=== PATIENT | female | born 1945 | race African-American/Black ===

== ENCOUNTER 2017-06-25 08:23 | Emergency (ER) | payer OTHER ==
[2017-06-25 08:32] VITALS: BP 142/79; BMI 28.3
[2017-06-25] MEDS ORDERED: TORADOL 30 MG VIAL IM ONE (09:01)
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
[2017-06-25] MEDS ORDERED: TORADOL 30 MG VIAL ONE (09:09)
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
== END 2017-06-25 10:57 | disposition home or self-care (01) ==
LOC: ER 08:43
DX: M47.16 Other spondylosis with myelopathy, lumbar region (principal)
CPT/HCPCS: 72131; 96372; 99283; J1885

== ENCOUNTER 2017-07-03 16:09 | Emergency (ER) | payer OTHER ==
[2017-07-03 16:19] VITALS: BP 143/80; BMI 21.5
[2017-07-03] MEDS ORDERED: TORADOL 60 MG VIAL IM ONE (17:58)
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
[2017-07-03] MEDS ORDERED: TORADOL 60 MG VIAL ONE (18:08)
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
== END 2017-07-03 19:57 | disposition home or self-care (01) ==
LOC: ER 16:25
DX: M54.89 Other dorsalgia (principal); M54.30 Sciatica, unspecified side; R10.2 Pelvic and perineal pain
CPT/HCPCS: 72192; 96372; 99282; J1885

== ENCOUNTER → 2018-01-29 | Outpatient (CLI) | payer OTHER ==
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
[2018-01-29 15:34] LABS: ALANINE AMINOTRANSFERASE 16 Units/L (12-78); ALBUMIN 3.6 g/dL (3.4-5.0); ALKALINE PHOSPHATASE 55 Units/L (46-116); ASPARTATE AMINO TRANSFERASE 18 Units/L (15-37); BLOOD UREA NITROGEN 34 mg/dL (7-18); CALCIUM 8.8 mg/dL (8.5-10.1); CARBON DIOXIDE 24.5 mmol/L (21-32); CHLORIDE 103 mmol/L (98-107); COR NA(FOR HYPERGLY) 141 mmol/L (136-145); CREATININE 1.66 mg/dL (0.55-1.02); SODIUM 140 mmol/L (136-145); TOTAL PROTEIN 8.3 g/dL (6.4-8.2); eGFR BLACK RACES 39 (>60); eGFR NON BLACK RACES 32 (>60)
[2018-01-29 15:39] LABS: BASOPHILS % (AUTO) 1.2 % (0.2-1.0); EOSINOPHILS % (AUTO) 0.5 % (0.9-2.9); HEMATOCRIT 33.3 % (36.0-47.0); LYMPHOCYTES # (AUTO) 2.2 X10^3/uL (1.3-2.9); LYMPHOCYTES % (AUTO) 66.4 % (21.0-51.0); MEAN CORPUSCULAR HEMOGLOBIN 27.5 pg (27.0-34.0); MEAN CORPUSCULAR HGB CONC 33.1 g/dL (33.0-35.0); MEAN CORPUSCULAR VOLUME 83.2 fL (80.0-100.0); MONOCYTES # (AUTO) 0.4 x10^3/uL (0.3-0.8); MONOCYTES % (AUTO) 11.7 % (0.0-13.0); NEUTROPHILS # (AUTO) 0.7 x10^3/uL (2.2-4.8); NEUTROPHILS % (AUTO) 20.2 % (42.0-75.0); PLATELET COUNT 241 X10^3/uL (150.0-450.0); RED BLOOD COUNT 4.01 X10^6/uL (3.5-5.4); RED CELL DISTRIBUTION WIDTH 15.2 % (11.6-16.5); WHITE BLOOD COUNT 3.3 X10^3/uL (3.6-10.0)
[2018-01-29 16:03] LABS: B-TYPE NATRIURETIC PEPTIDE 8.9 pg/mL (0-79)
[2018-01-29 16:44] LABS: BAND NEUTROPHILS % 2 % (0-10); HYPOCHROMASIA SLIGHT; PLATELET MORPHOLOGY COMMENT NORMAL (NORMAL); POIKILOCYTOSIS SLIGHT
[2018-01-29 16:45] LABS: ANISOCYTOSIS SLIGHT
== END | disposition home or self-care (01) | DRG 864 ==
LOC: LAB 14:31
PROVIDERS: ATTEND Obstetrics & Gynecology Obstetrics
DX: R50.9 Fever, unspecified (principal); R06.09 Other forms of dyspnea; R06.9 Unspecified abnormalities of breathing
CPT/HCPCS: 36415; 71046; 80053; 83880; 85025